=== PATIENT | female | born 1960 | race Caucasian/White ===

== ENCOUNTER → 2024-01-18 16:11 | Outpatient (REF) | payer MEDICARE, OTHER, SELFPAY | LOC: RAD 16:11 | PROVIDERS: ATTENDING PHYSICIAN Surgery; FAMILY PHYSICIAN Physician Assistant | DX: N13.2 Hydronephrosis with renal and ureteral calculous obstruction (principal) | CPT/HCPCS: 74018 ==

== ENCOUNTER → 2024-04-26 12:29 | Outpatient (REF) | payer MEDICARE, OTHER, SELFPAY | LOC: RAD 12:29 | PROVIDERS: ATTENDING PHYSICIAN Registered Nurse Oncology; FAMILY PHYSICIAN Physician Assistant | DX: T85.868A Thrombosis due to other internal prosthetic devices, implants and grafts, initial encounter (principal); I82.621 Acute embolism and thrombosis of deep veins of right upper extremity | CPT/HCPCS: 93971 ==

== ENCOUNTER → 2024-07-05 10:38 | Outpatient (REF) | payer MEDICARE, OTHER, SELFPAY | LOC: RCS 10:38 | PROVIDERS: ATTENDING PHYSICIAN Nurse Practitioner Family | DX: Z00.00 Encounter for general adult medical examination without abnormal findings (principal); Z13.220 Encounter for screening for lipoid disorders; Z85.43 Personal history of malignant neoplasm of ovary; M54.50 Low back pain, unspecified | CPT/HCPCS: 93005 ==